=== PATIENT | female | born 1965 | race Hispanic/Latino ===

== ENCOUNTER → 2024-06-28 | Day surgery (SDC) | payer OTHER ==
[~2024-06-28] MED LIST: BACTRIM DS TAB1 EACH PO; LACTATED RINGER'S 1,000 ML ONE; LEXAPRO10 MG PO; LIPITOR10 MG PO; OMEPRAZOLE40 MG PO; VASOTEC10 M1 PO
== END | disposition home or self-care (01) ==
LOC: OR 09:59
PROVIDERS: ATTEND Internal Medicine Gastroenterology
DX: R10.10 Upper abdominal pain, unspecified (principal); Z86.0100 Personal history of colon polyps, unspecified; R13.10 Dysphagia, unspecified; Z53.8 Procedure and treatment not carried out for other reasons; Z01.810 Encounter for preprocedural cardiovascular examination
CPT/HCPCS: 93005; J7121

== ENCOUNTER → 2024-07-04 | Day surgery (SDC) | payer OTHER ==
[~2024-07-04] MED LIST changes: +FENTANYL CITRATE/PF 100MCG/2 ML INJ ONE; +GLYCOPYRROLATE INJ 0.2 MG/ML VIAL ONE; +LABETALOL HCL 20 ML ONE; -LACTATED RINGER'S 1,000 ML ONE; +LIDOCAINE HCL 2% LOCAL INJ 5 ML SDV VIAL INJ ONE; +METOCLOPRAMIDE HCL 10 MG/2ML VIAL ONE
[2024-07-04] MEDS: LACTATED RINGER'S 1,000 ML ONE (11:44)
[2024-07-04 15:20] VITALS: TEMP 97
[2024-07-04 15:50] VITALS: BP 156/98; PULSE 16; RESP 16; O2SAT 100
== END | disposition home or self-care (01) ==
LOC: ENDO 11:26
PROVIDERS: ATTEND Internal Medicine Gastroenterology
DX: K29.50 Unspecified chronic gastritis without bleeding (principal); K31.7 Polyp of stomach and duodenum; K22.2 Esophageal obstruction; K20.90 Esophagitis, unspecified without bleeding; K21.9 Gastro-esophageal reflux disease without esophagitis; I10 Essential (primary) hypertension; E78.5 Hyperlipidemia, unspecified; Z79.899 Other long term (current) drug therapy
CPT/HCPCS: 43239; 43251; 43450; J2003; J2470; J2765; J3010; J3490; J7121